=== PATIENT | female | born 2000 | race African-American/Black ===

== ENCOUNTER → 2021-05-05 | Emergency (ER) | payer SELFPAY ==
[~2021-05-05] MED LIST: AZITHROMYCIN250 MG PO; ONDANSETRON ODT4 MG PO; PREDNISONE20 MG PO; VENTOLIN HFA18 GM INH
== END | disposition home or self-care (01) ==
LOC: ER 03:00
DX: R50.9 Fever, unspecified (principal); R06.00 Dyspnea, unspecified; R05 Cough; R53.81 Other malaise
CPT/HCPCS: 99282